=== PATIENT | female | born 2000 | race Caucasian/White ===

== ENCOUNTER 2019-08-19 21:01 | Inpatient (IN) ==
[2019-08-19] MEDS: LACTATED RINGERS 1,000 ML IV SCH ×2 (21:25→22:19)
[2019-08-19 21:26] LABS: Apearance,Urine CLEAR (Clear); Bilirubin,Urine Negative (Negative); Blood, Urine Negative (Negative); Glucose,Urine (UA) Negative (Negative); Ketones,Urine Negative (Negative); Mucus,Urine Occasional /LPF (Occasional); Nitrite,Urine Negative (Negative); Protein,Urine Negative; RBC,Urine 2 /HPF (0-4); Squamous Epithelial Cell,Urine Occasional /HPF (0-10); Urine Color Straw (Yellow); Urine Specific Gravity 1.005 (1.001-1.035); Urine Urobilinogen < 2.0 EU/DL (0.2-1.0); WBC,Urine 2 /HPF (0-6)
[2019-08-19] MEDS ORDERED: ONDANSETRON 4 MG/2 ML VIAL IV PRN (21:27)
[2019-08-19] MEDS ORDERED: MEPERIDINE 50 MG/1 ML VIAL IV PRN (21:27)
[2019-08-19] MEDS ORDERED: BUTORPHANOL 2 MG/ML VIAL IV PRN (21:27)
[2019-08-19] MEDS ORDERED: OXYTOCIN/LR 20 UNIT/1,000 ML BAG IV PRN (21:27)
[2019-08-19] MEDS ORDERED: AMPICILLIN INJ 2,000 MG in SODIUM CHLORIDE 0.9% 100 ML IV ONE (21:30)
[2019-08-19] MEDS ORDERED: NALOXONE 0.4 MG/ML VIAL IV PRN (21:40)
[2019-08-19] MEDS ORDERED: PROMETHAZINE 25 MG/1 ML VIAL IM ONE (21:40)
[2019-08-19] MEDS ORDERED: CITRIC ACID/SODIUM CITRATE 30 ML UDCUP PO ONE (21:40)
[2019-08-19] MEDS ORDERED: hydrOXYzine HCL 25 MG/1 ML VIAL IM PRN (21:40)
[2019-08-19] MEDS ORDERED: diphenhydrAMINE 50 MG/1 ML VIAL IV PRN (21:40)
[2019-08-19] MEDS ORDERED: FAMOTIDINE 20 MG/2 ML VIAL IV ONE (21:40)
[2019-08-19] MEDS ORDERED: ePHEDrine 50 MG/ML AMP IV PRN (21:40)
[2019-08-19 21:48] LABS: Basophils % 0.2 % (0.0-0.8); Eosinophils # 0.1 10*3/uL (0.0-0.87); Eosinophils % 0.5 % (0.00-10.9); Hematocrit 34.6 VOL% (35.7-47.0); Hemoglobin 11.3 GM/DL (12.0-16.0); Immature Granulocytes % 1.4 %; Immature Granulocytes Absolute 0.24 #; Lymphocytes # 0.9 10*3/uL (1.4-4.0); Lymphocytes % 5.6 % (21.3-54.2); Mean Corpuscular HGB Conc 32.7 GM/DL (32-36); Mean Corpuscular Volume 85.2 FL (87-102); Mean Platelet Volume 9.9 FL (9.6-12.0); Monocytes % 8.3 % (1.7-12.7); Platelet Count 310 T/CUMM (130-400); Red Blood Count 4.06 MC/CUMM (3.8-5.5); Red Cell Distribution Width 12.6 % (9.3-17.3); White Blood Count 16.7 T/CUMM (4-12)
[2019-08-19 22:08] LABS: Bilirubin,Total 0.4 MG/DL (0.2-1.0); Calcium 9.4 MG/DL (8.5-10.1); Osmolality,Calculated 273.5 MOS/KG (273-304); Total Protein 7.6 G/DL (6.4-8.3)
[2019-08-19] MEDS: fentaNYL 2 MCG/ROPIV 0.2% EPID 100 ML EPIDURAL SCH (22:36)
[2019-08-20] MEDS ORDERED: ATENOLOL 25 MG TABLET PO ONE ×3 (02:56→11:25)
[2019-08-20] MEDS: ACETAMINOPHEN 325 MG TABLET PO PRN ×2 (03:09→07:59)
[2019-08-20] MEDS: AMPICILLIN INJ 1,000 MG in SODIUM CHLORIDE 0.9% 100 ML IV SCH ×4 (03:35→15:47)
[2019-08-20] MEDS: LACTATED RINGERS 1,000 ML IV SCH (06:27)
[2019-08-20] MEDS: fentaNYL 2 MCG/ROPIV 0.2% EPID 100 ML EPIDURAL SCH (08:20)
[2019-08-20] MEDS ORDERED: miSOPROStoL 200 MCG TABLET ONE (11:14)
[2019-08-20] MEDS ORDERED: TRANEXAMIC ACID 1,000 MG/10 ML VIAL ONE (11:14)
[2019-08-20] MEDS ORDERED: CARBOPROST TROMETHAMINE 250 MCG/ML AMP IM ONE (11:15)
[2019-08-20] MEDS ORDERED: METHYLERGONOVINE 0.2 MG/1 ML AMP ONE (11:15)
[2019-08-20] MEDS ORDERED: LIDOCAINE 1% 50 ML VIAL ONE (11:16)
[2019-08-20 14:28] LABS: Cord Venous Blood HCO3 21.1 MMOL/L; Cord Venous Blood PO2 25.1
[2019-08-20] MEDS ORDERED: oxyCODONE/ACETAMINOPHEN 5-325 MG TABLET PO PRN (14:36)
[2019-08-20] MEDS ORDERED: ONDANSETRON 4 MG/2 ML VIAL IV PRN (14:36)
[2019-08-20] MEDS ORDERED: HYDROCORTISONE 2.5% RECTAL CREAM 30 GM TUBE TOP PRN (14:36)
[2019-08-20] MEDS ORDERED: WITCH HAZEL PADS 100/JAR TOP PRN (14:36)
[2019-08-20] MEDS ORDERED: BENZOCAINE 20%/MENTHOL 0.5% SPRAY 56 GM CAN TOP PRN (14:36)
[2019-08-20] MEDS ORDERED: LANOLIN 50% CREAM 0.3 OZ TUBE TOP PRN (14:36)
[2019-08-20] MEDS ORDERED: MEASLES/MUMPS/RUBELLA VACCINE 0.5 ML VIAL SUBCUT ONE (14:36)
[2019-08-20] MEDS ORDERED: BISACODYL 10 MG SUPP RECTAL PRN (14:36)
[2019-08-20] MEDS ORDERED: RHO(D) IMMUNE GLOBULIN 300 MCG SYRINGE IM ONE (14:36)
[2019-08-20] MEDS ORDERED: DIPH/TET/ACEL PERT BOOSTER VACCINE 0.5 ML VIAL IM ONE (14:36)
[2019-08-20] MEDS ORDERED: OXYTOCIN/LR 20 UNIT/1,000 ML BAG IV ONE (14:36)
[2019-08-20] MEDS ORDERED: ACETAMINOPHEN 325 MG TABLET PO PRN (14:36)
[2019-08-20] MEDS: oxyCODONE/ACETAMINOPHEN 5-325 MG TABLET PO PRN (17:36)
[2019-08-20] MEDS: IBUPROFEN 800 MG TABLET PO PRN (17:37)
[2019-08-20] MEDS: DOCUSATE SODIUM 100 MG CAPSULE PO SCH (21:09)
[2019-08-21] MEDS: AMPICILLIN INJ 1,000 MG in SODIUM CHLORIDE 0.9% 100 ML IV SCH ×4 (00:19→17:43)
[2019-08-21 05:33] LABS: Basophils # 0.1 10*3/uL (0.0-0.2); Basophils % 0.2 % (0.0-0.8); Eosinophils # 0.3 10*3/uL (0.0-0.87); Eosinophils % 1.2 % (0.00-10.9); Hemoglobin 9.1 GM/DL (12.0-16.0); Immature Granulocytes % 2.1 %; Immature Granulocytes Absolute 0.47 #; Lymphocytes # 1.5 10*3/uL (1.4-4.0); Lymphocytes % 6.6 % (21.3-54.2); Mean Corpuscular HGB Conc 32.5 GM/DL (32-36); Mean Corpuscular Volume 85.9 FL (87-102); Mean Platelet Volume 9.8 FL (9.6-12.0); Monocytes % 7.3 % (1.7-12.7); Neutrophils % 82.6 % (38.7-73.9); Platelet Count 234 T/CUMM (130-400); Red Blood Count 3.26 MC/CUMM (3.8-5.5); Red Cell Distribution Width 12.8 % (9.3-17.3); White Blood Count 22.9 T/CUMM (4-12)
[2019-08-21 05:57] LABS: Band Neutrophils 5 % (0-10); Eosinophils 2 % (0-10); Lymphocytes 3 % (20-55); Segmented Neutrophils 86 % (50-85); Total Cells Counted 100
[2019-08-21 05:58] LABS: Hypochromasia 1+; Microcytosis Slight; Ovalocytes Slight; Platelet Estimate Normal
[2019-08-21] MEDS: DOCUSATE SODIUM 100 MG CAPSULE PO SCH ×2 (08:05→21:35)
[2019-08-21] MEDS: oxyCODONE/ACETAMINOPHEN 5-325 MG TABLET PO PRN ×3 (08:05→23:34)
[2019-08-21] MEDS ORDERED: INFLUENZA VIRUS VACCINE 0.5 ML SYRINGE IM ONE (21:55)
[2019-08-22] MEDS: DOCUSATE SODIUM 100 MG CAPSULE PO SCH ×2 (11:50→22:37)
[2019-08-22] MEDS: oxyCODONE/ACETAMINOPHEN 5-325 MG TABLET PO PRN (13:10)
[2019-08-22] MEDS: IBUPROFEN 800 MG TABLET PO PRN (22:37)
[2019-08-23 07:21] VITALS: BP 101/63
[2019-08-23] MEDS: IBUPROFEN 800 MG TABLET PO PRN (10:16)
[2019-08-23] MEDS: DOCUSATE SODIUM 100 MG CAPSULE PO SCH (10:16)
== END 2019-08-23 13:00 | disposition home or self-care (01) | DRG 560 ==
LOC: N.LDOUT 21:01 → N.LD 21:02 → N.OB 08-20 16:52
PROVIDERS: ADMIT Obstetrics & Gynecology; ATTEND Obstetrics & Gynecology

== ENCOUNTER 2022-04-05 18:20 | Inpatient (IN) ==
[2022-04-05] MEDS ORDERED: CARBOPROST TROMETHAMINE 250 MCG/ML AMP IM PRN (18:41)
[2022-04-05] MEDS ORDERED: ONDANSETRON 4 MG/2 ML VIAL IV PRN (18:41)
[2022-04-05] MEDS ORDERED: METHYLERGONOVINE 0.2 MG/1 ML AMP IM PRN (18:41)
[2022-04-05] MEDS ORDERED: TRANEXAMIC ACID 1,000 MG in SODIUM CHLORIDE 0.9% 100 ML IV PRN (18:41)
[2022-04-05] MEDS ORDERED: miSOPROStoL 200 MCG TABLET RECTAL PRN (18:41)
[2022-04-05] MEDS ORDERED: OXYTOCIN/LR 20 UNIT/1,000 ML BAG IV ONE (18:41)
[2022-04-05 19:21] LABS: Basophils # 0.1 10*3/uL (0.0-0.2); Basophils % 0.6 % (0.0-0.8); Eosinophils # 0.1 10*3/uL (0.0-0.87); Eosinophils % 0.7 % (0.00-10.9); Hemoglobin 10.6 GM/DL (12.0-16.0); Immature Granulocytes % 3.7 %; Immature Granulocytes Absolute 0.42 #; Lymphocytes # 1.3 10*3/uL (1.4-4.0); Lymphocytes % 11.1 % (21.3-54.2); Mean Corpuscular HGB Conc 32.1 GM/DL (32-36); Mean Corpuscular Volume 84.2 FL (87-102); Mean Platelet Volume 9.2 FL (9.6-12.0); Monocytes # 1.1 10*3/uL (0.11-0.8); Monocytes % 9.4 % (1.7-12.7); Neutrophils % 74.5 % (38.7-73.9); Platelet Count 270 T/CUMM (130-400); Red Blood Count 3.92 MC/CUMM (3.8-5.5); Red Cell Distribution Width 14.8 % (9.3-17.3); White Blood Count 11.5 T/CUMM (4-12)
[2022-04-05 19:40] LABS: Alanine Aminotransferase 15 U/L (13-56); Albumin 2.7 G/DL (3.4-5.0); Alkaline Phosphatase 163 U/L (45-117); Aspartate Amino Transferase 15 U/L (0-37); Bilirubin,Total < 0.39 MG/DL (0.20-1.00); Blood Urea Nitrogen 9 MG/DL (7-18); Calcium 8.7 MG/DL (8.5-10.1); Carbon Dioxide 22 MMOL/L (21-32); Chloride 108 MMOL/L (98-107); Glucose 79 MG/DL (74-106); Potassium 3.9 MMOL/L (3.5-5.1); Sodium 136 MMOL/L (136-145); Total Protein 7.1 G/DL (6.4-8.2)
[2022-04-05] MEDS: LACTATED RINGERS 1,000 ML IV SCH ×2 (19:52→23:39)
[2022-04-05] MEDS ORDERED: MEPERIDINE 50 MG/1 ML VIAL IV PRN (20:50)
[2022-04-05] MEDS ORDERED: LACTATED RINGERS 1,000 ML IV ONE (23:18)
[2022-04-05] MEDS ORDERED: CITRIC ACID/SODIUM CITRATE 30 ML UDCUP PO ONE (23:18)
[2022-04-05] MEDS ORDERED: FAMOTIDINE 20 MG/2 ML VIAL IV ONE (23:18)
[2022-04-05] MEDS ORDERED: diphenhydrAMINE 50 MG/1 ML VIAL IV PRN (23:19)
[2022-04-05] MEDS ORDERED: NALOXONE 0.4 MG/ML VIAL IV PRN (23:19)
[2022-04-06] MEDS: fentaNYL 2 MCG/ROPIV 0.2% EPID 100 ML EPIDURAL SCH ×2 (00:14→07:21)
[2022-04-06] MEDS: ePHEDrine 50 MG/ML VIAL IV PRN ×3 (01:19→02:04)
[2022-04-06 01:22] LABS: Bacteria,Urine Occasional /HPF (Few); Bilirubin,Urine Negative (Negative); Blood, Urine Small mg/dL (Negative); Glucose,Urine (UA) Negative (Negative); Ketones,Urine Negative (Negative); Mucus,Urine Many /LPF (Occasional); Nitrite,Urine Negative (Negative); RBC,Urine 29 /HPF (0-4); Squamous Epithelial Cell,Urine Occasional /HPF (0-10); Urine Appearance Clear (Clear); Urine Color Yellow (Yellow); Urine Specific Gravity > 1.030 (1.001-1.035)
[2022-04-06] MEDS: LACTATED RINGERS 1,000 ML IV SCH ×2 (01:31→07:40)
[2022-04-06] MEDS ORDERED: OXYTOCIN/LR 20 UNIT/1,000 ML BAG IV SCH (02:35)
[2022-04-06] MEDS ORDERED: CARBOPROST TROMETHAMINE 250 MCG/ML AMP IM ONE (08:20)
[2022-04-06] MEDS ORDERED: miSOPROStoL 200 MCG TABLET ONE (08:20)
[2022-04-06] MEDS ORDERED: TRANEXAMIC ACID 1,000 MG/10 ML VIAL ONE (08:20)
[2022-04-06] MEDS ORDERED: METHYLERGONOVINE 0.2 MG/1 ML AMP ONE (08:20)
[2022-04-06] MEDS ORDERED: SODIUM CHLORIDE 0.9% 0 ML IV ONE (08:20)
[2022-04-06 09:22] LABS: Cord Venous Blood HCO3 20.7 MMOL/L; Cord Venous Blood PCO2 43.4 MMHG
[2022-04-06] MEDS ORDERED: diphenhydrAMINE 50 MG/1 ML VIAL IV ONE (10:24)
[2022-04-06] MEDS ORDERED: BENZOCAINE 20%/MENTHOL 0.5% SPRAY 56 GM CAN TOP PRN (12:23)
[2022-04-06] MEDS ORDERED: WITCH HAZEL PADS 100/JAR TOP PRN (12:23)
[2022-04-06] MEDS ORDERED: OXYTOCIN/LR 20 UNIT/1,000 ML BAG IV ONE (12:23)
[2022-04-06] MEDS ORDERED: LANOLIN 50% CREAM 0.3 OZ TUBE TOP PRN (12:23)
[2022-04-06] MEDS ORDERED: ACETAMINOPHEN 325 MG TABLET PO PRN (12:23)
[2022-04-06] MEDS ORDERED: BISACODYL 10 MG SUPP RECTAL PRN (12:23)
[2022-04-06] MEDS ORDERED: DIPH/TET/ACEL PERT BOOSTER VACCINE 0.5 ML VIAL IM ONE (12:23)
[2022-04-06] MEDS ORDERED: HYDROCORTISONE 2.5% RECTAL CREAM 30 GM TUBE TOP PRN (12:23)
[2022-04-06] MEDS ORDERED: oxyCODONE/ACETAMINOPHEN 5-325 MG TABLET PO PRN (12:23)
[2022-04-06] MEDS: oxyCODONE/ACETAMINOPHEN 5-325 MG TABLET PO PRN ×2 (12:31→18:41)
[2022-04-06] MEDS: IBUPROFEN 800 MG TABLET PO PRN ×2 (12:32→18:42)
[2022-04-06] MEDS: DOCUSATE SODIUM 100 MG CAPSULE PO SCH (21:15)
[2022-04-07] MEDS: oxyCODONE/ACETAMINOPHEN 5-325 MG TABLET PO PRN ×5 (00:57→22:59)
[2022-04-07] MEDS: IBUPROFEN 800 MG TABLET PO PRN ×4 (00:58→22:59)
[2022-04-07 06:40] LABS: Basophils # 0.1 10*3/uL (0.0-0.2); Basophils % 0.3 % (0.0-0.8); Eosinophils # 0.1 10*3/uL (0.0-0.87); Eosinophils % 0.7 % (0.00-10.9); Hematocrit 27.5 VOL% (35.7-47.0); Hemoglobin 8.7 GM/DL (12.0-16.0); Immature Granulocytes % 2.8 %; Immature Granulocytes Absolute 0.42 #; Lymphocytes # 2.1 10*3/uL (1.4-4.0); Lymphocytes % 14.1 % (21.3-54.2); Mean Corpuscular HGB Conc 31.6 GM/DL (32-36); Mean Corpuscular Volume 85.1 FL (87-102); Mean Platelet Volume 9.8 FL (9.6-12.0); Monocytes # 1.1 10*3/uL (0.11-0.8); Monocytes % 7.5 % (1.7-12.7); Neutrophils % 74.6 % (38.7-73.9); Platelet Count 191 T/CUMM (130-400); Red Blood Count 3.23 MC/CUMM (3.8-5.5); White Blood Count 14.8 T/CUMM (4-12)
[2022-04-07] MEDS: MULTIVITAMIN (PRENATAL) TABLET PO SCH (09:21)
[2022-04-07] MEDS: DOCUSATE SODIUM 100 MG CAPSULE PO SCH (09:22)
[2022-04-07] MEDS ORDERED: ONDANSETRON 4 MG TABLET PO PRN (13:19)
[2022-04-07] MEDS: FERROUS SULFATE 325 MG TABLET PO SCH (21:39)
[2022-04-08] MEDS: DOCUSATE SODIUM 100 MG CAPSULE PO SCH ×2 (00:47→10:17)
[2022-04-08] MEDS: IBUPROFEN 800 MG TABLET PO PRN (06:21)
[2022-04-08] MEDS: oxyCODONE/ACETAMINOPHEN 5-325 MG TABLET PO PRN ×2 (06:21→10:41)
[2022-04-08 07:20] VITALS: BP 124/70
[2022-04-08] MEDS: MULTIVITAMIN (PRENATAL) TABLET PO SCH (10:17)
[2022-04-08] MEDS: FERROUS SULFATE 325 MG TABLET PO SCH (10:17)
== END 2022-04-08 15:26 | disposition home or self-care (01) | DRG 560 ==
LOC: N.LDOUT 18:20 → N.LD 18:25 → N.OB 04-06 12:23
PROVIDERS: ADMIT Obstetrics & Gynecology; ATTEND Obstetrics & Gynecology